=== PATIENT | male | born 1975 | race African-American/Black ===

== ENCOUNTER 2016-08-17 18:56 | Inpatient (IN) | payer MEDICAID ==
[~2016-08-17] VITALS: Ht 172.7 cm; Wt 83.2 kg
[~2016-08-17 18:56] MED LIST: BUPR-40 PO; QUET200T3 PO
[2016-08-17 19:49] LABS: DEFINITIVE VIEW TRANSMISSION; Hematocrit 37.5 % (41.0-53.0); Hemoglobin 12.3 g/dL (13.5-17.5); Mean Corpuscular Hemoglobin 28.2 pg (28.0-32.0); Mean Corpuscular Hgb Conc. 32.8 g/dL (32.0-36.0); Mean Corpuscular Volume 85.9 fL (80.0-100.0); Platelet Count (auto) 383 10^3/uL (140-450); Red Cell Distribution Width 17.6 % (11.6-16.0); SUSPECT VIEW TRANSMISSION
[2016-08-17 20:06] LABS: Albumin 2.9 g/dL (3.4-5.0); BUN/Creatinine Ratio 9.2; Calcium 8.3 mg/dL (8.5-10.1); Potassium 4.7 mmol/L (3.5-5.1)
[2016-08-17 20:08] LABS: Bilirubin, Total 0.2 mg/dL (0.2-1.0); Total Protein 7.9 g/dL (6.4-8.2)
[2016-08-17 20:14] LABS: White Blood Cell 94.8 10^3/uL (4.4-10.8)
[2016-08-17 20:15] LABS: Reactive Lymphocytes 0
[2016-08-17 20:36] LABS: Metamyelocytes % 8; Myelocytes % 4; Platelet Estimate Adequate; Promyelocytes % 1
[2016-08-17 20:41] LABS: Giant Platelets Few
[2016-08-17 20:42] LABS: Polychromasia Slight
[2016-08-18] MEDS ORDERED: LEVOFLOXACIN 500 MG TAB PO ONE (06:00)
[2016-08-18] MEDS ORDERED: cefTRIAXone 1GM/50ML D5W 50 ML IV ONE (06:00)
[2016-08-18] MEDS ORDERED: HYDROcodone-ACET 10/325MG TAB PO ONE (06:45)
[2016-08-18] MEDS ORDERED: HYDROcodone-ACET 10/325MG TAB PO PRN (09:30)
[2016-08-18] MEDS ORDERED: NITROGLYCERIN 0.4 MG SL TAB SL PRN (09:45)
[2016-08-18] MEDS ORDERED: TEMAZEPAM 15 MG CAP PO PRN (09:45)
[2016-08-18] MEDS ORDERED: DOCUSATE SOD 100 MG CAP PO PRN (09:45)
[2016-08-18] MEDS ORDERED: ACETAMINOPHEN 325 MG TAB PO PRN (09:45)
[2016-08-18] MEDS ORDERED: ONDANSETRON HCL 4 MG/2 ML VIAL IV PRN (09:45)
[2016-08-18] MEDS ORDERED: MORPHINE SULF INJ 2 MG/ML SYRINGE 1ML IV PRN ×2 (09:45)
[2016-08-18] MEDS: MULTIPLE VITAMIN TAB PO SCH (10:05)
[2016-08-18] MEDS: FAMOTIDINE 20 MG TAB PO SCH ×2 (10:05→21:34)
[2016-08-18] MEDS: AZITHROMYCIN 500MG/D5W 250ML 250 ML IV SCH (10:05)
[2016-08-18 13:00] VITALS: BP 102/66
[2016-08-18] MEDS: BOOST PLUS 8 ounce PO SCH ×3 (13:04→23:24)
[2016-08-18] MEDS: ALBUTEROL SULF 2.5 MG/0.5ML(0.5%) NEB SOLN NEB SCH ×2 (14:23→22:32)
[2016-08-18] MEDS ORDERED: HYDR-531 PO (14:38)
[2016-08-18] MEDS ORDERED: ALPR2TAB2 PO (14:38)
[2016-08-18] MEDS: SODIUM CHLOR 0.9% PF (SALINE LOCK) 10ML VIAL IV SCH ×2 (16:35→21:35)
[2016-08-18 17:00] VITALS: BP 102/57
[2016-08-18] MEDS: buPROPion HCL 75 MG TAB PO SCH (18:15)
[2016-08-18] MEDS: QUEtiapine FUMARATE 100 MG TAB PO SCH (21:34)
[2016-08-18 22:00] VITALS: BP 110/55
[2016-08-19 05:00] VITALS: BP 118/66
[2016-08-19] MEDS: SODIUM CHLOR 0.9% PF (SALINE LOCK) 10ML VIAL IV SCH ×3 (05:56→21:43)
[2016-08-19] MEDS: BOOST PLUS 8 ounce PO SCH ×4 (06:00→21:44)
[2016-08-19 06:08] LABS: Albumin 2.6 g/dL (3.4-5.0); Calcium 8.5 mg/dL (8.5-10.1); Potassium 4.6 mmol/L (3.5-5.1)
[2016-08-19] MEDS: buPROPion HCL 75 MG TAB PO SCH ×2 (06:09→17:29)
[2016-08-19 06:12] LABS: Bilirubin, Total 0.1 mg/dL (0.2-1.0); Total Protein 7.3 g/dL (6.4-8.2)
[2016-08-19 06:18] LABS: DEFINITIVE VIEW TRANSMISSION; Hematocrit 38.6 % (41.0-53.0); Hemoglobin 12.4 g/dL (13.5-17.5); Mean Corpuscular Hemoglobin 28.1 pg (28.0-32.0); Mean Corpuscular Hgb Conc. 32.2 g/dL (32.0-36.0); Mean Corpuscular Volume 87.2 fL (80.0-100.0); Mean Platelet Volume 8.3 fL (7.4-10.4); Platelet Count (auto) 371 10^3/uL (140-450); Red Cell Distribution Width 17.8 % (11.6-16.0); SUSPECT VIEW TRANSMISSION
[2016-08-19] MEDS: ALBUTEROL SULF 2.5 MG/0.5ML(0.5%) NEB SOLN NEB SCH ×3 (07:15→23:04)
[2016-08-19 07:52] LABS: White Blood Cell 80.7 10^3/uL (4.4-10.8)
[2016-08-19 07:56] LABS: Promyelocytes % 0; Reactive Lymphocytes 0
[2016-08-19 08:00] VITALS: BP 115/67
[2016-08-19] MEDS: cefTRIAXone 1GM/50ML D5W 50 ML IV SCH (08:10)
[2016-08-19] MEDS: AZITHROMYCIN 500MG/D5W 250ML 250 ML IV SCH (08:11)
[2016-08-19] MEDS: MULTIPLE VITAMIN TAB PO SCH (08:11)
[2016-08-19] MEDS: FAMOTIDINE 20 MG TAB PO SCH ×2 (08:11→21:49)
[2016-08-19 09:12] LABS: Metamyelocytes % 6; Myelocytes % 2
[2016-08-19 09:13] LABS: Platelet Estimate Adequate; RBC Morphology Normal
[2016-08-19 11:00] VITALS: BP 131/72
[2016-08-19 11:03] VITALS: BP 115/67
[2016-08-19] MEDS: ALPRAZolam 0.5 MG TAB PO PRN (12:27)
[2016-08-19 16:23] VITALS: BP 117/71
[2016-08-19] MEDS: QUEtiapine FUMARATE 100 MG TAB PO SCH (21:49)
[2016-08-19 22:00] VITALS: BP 117/75
[2016-08-20 05:00] VITALS: BP 109/57
[2016-08-20] MEDS: buPROPion HCL 75 MG TAB PO SCH ×2 (05:57→19:00)
[2016-08-20] MEDS: SODIUM CHLOR 0.9% PF (SALINE LOCK) 10ML VIAL IV SCH ×2 (05:57→14:00)
[2016-08-20 06:23] LABS: Magnesium 2.4 mg/dL (1.6-2.6); Potassium 4.2 mmol/L (3.5-5.1)
[2016-08-20 06:46] LABS: DEFINITIVE VIEW TRANSMISSION; Hematocrit 40.3 % (41.0-53.0); Mean Corpuscular Hemoglobin 28.2 pg (28.0-32.0); Mean Corpuscular Hgb Conc. 32.3 g/dL (32.0-36.0); Mean Corpuscular Volume 87.2 fL (80.0-100.0); Mean Platelet Volume 8.7 fL (7.4-10.4); Platelet Count (auto) 427 10^3/uL (140-450); Red Cell Distribution Width 16.6 % (11.6-16.0); SUSPECT VIEW TRANSMISSION
[2016-08-20 07:33] LABS: White Blood Cell 83.1 10^3/uL (4.4-10.8)
[2016-08-20 07:34] LABS: Reactive Lymphocytes 0
[2016-08-20] MEDS: BOOST PLUS 8 ounce PO SCH ×3 (08:00→18:00)
[2016-08-20] MEDS: MULTIPLE VITAMIN TAB PO SCH (08:49)
[2016-08-20] MEDS: FAMOTIDINE 20 MG TAB PO SCH (08:49)
[2016-08-20] MEDS: ALPRAZolam 0.5 MG TAB PO PRN (08:50)
[2016-08-20] MEDS: cefTRIAXone 1GM/50ML D5W 50 ML IV SCH (08:51)
[2016-08-20 09:00] VITALS: BP 120/77
[2016-08-20] MEDS: ALBUTEROL SULF 2.5 MG/0.5ML(0.5%) NEB SOLN NEB SCH ×2 (09:03→15:18)
[2016-08-20] MEDS ORDERED: ALLOPURINOL 300 MG TAB PO SCH (10:00)
[2016-08-20] MEDS: AZITHROMYCIN 500MG/D5W 250ML 250 ML IV SCH (10:06)
[2016-08-20 12:20] LABS: Metamyelocytes % 8; Myelocytes % 10; Promyelocytes % 1
[2016-08-20 12:21] LABS: Anisocytosis Slight; Platelet Estimate Adequate
[2016-08-20 13:06] VITALS: BP 112/92
[2016-08-20] MEDS ORDERED: HYDROXYUREA 500 MG CAP PO SCH (14:00)
[2016-08-20 15:38] VITALS: BP 112/92
[2016-08-20 16:59] VITALS: BP 136/74
== END 2016-08-20 19:35 | disposition home or self-care (01) | DRG 139 ==
LOC: ER 19:00 → TELE 19:01 → TELE-WESTW 08-18 13:41 → WEST WING 08-20 04:12
PROVIDERS: ADMIT Internal Medicine; ATTEND Internal Medicine
DX: J18.9 Pneumonia, unspecified organism (principal); E43 Unspecified severe protein-calorie malnutrition; C92.10 Chronic myeloid leukemia, BCR/ABL-positive, not having achieved remission; J45.901 Unspecified asthma with (acute) exacerbation; E88.09 Other disorders of plasma-protein metabolism, not elsewhere classified; D63.8 Anemia in other chronic diseases classified elsewhere; E16.2 Hypoglycemia, unspecified; F17.210 Nicotine dependence, cigarettes, uncomplicated; F20.9 Schizophrenia, unspecified; F31.9 Bipolar disorder, unspecified; N18.2 Chronic kidney disease, stage 2 (mild); R19.7 Diarrhea, unspecified; Z59.0 Homelessness; Z91.14 Patient's other noncompliance with medication regimen; Z91.19 Patient's noncompliance with other medical treatment and regimen; Z91.041 Radiographic dye allergy status; Z91.012 Allergy to eggs; Z92.21 Personal history of antineoplastic chemotherapy; Z68.27 Body mass index [BMI] 27.0-27.9, adult
CPT/HCPCS: 36415; 71010; 80048; 80053; 83735; 85007; 85027; 87040; 93005; 94640; 96365; J0696

== ENCOUNTER 2016-09-07 18:31 | Emergency (ER) | payer MEDICAID ==
[~2016-09-07] VITALS: Ht 172.7 cm; Wt 74.8 kg
[~2016-09-07 18:31] MED LIST changes: +ALPR2TAB2 PO; +HYDR-531 PO
[2016-09-08] MEDS ORDERED: cefTRIAXone W LIDOCAINE 1 GM IM IM ONE (03:00)
[2016-09-08] MEDS ORDERED: cefTRIAXone SOD 1,000 MG VL ONE (03:06)
[2016-09-08 04:02] VITALS: BP 118/77
== END 2016-09-08 04:04 | disposition home or self-care (01) ==
LOC: ER 18:34
DX: J06.9 Acute upper respiratory infection, unspecified (principal); F20.9 Schizophrenia, unspecified; F31.9 Bipolar disorder, unspecified; F17.210 Nicotine dependence, cigarettes, uncomplicated
CPT/HCPCS: 96372; 99283; J0696

== ENCOUNTER 2017-04-16 18:53 | Emergency (ER) | payer MEDICAID ==
[~2017-04-16] VITALS: Ht 175.3 cm; Wt 82.6 kg
[2017-04-16 19:02] VITALS: BP 118/76
[2017-04-16] MEDS ORDERED: ACETAMINOPHEN/CODEINE#3 (300/30mg) TAB PO ONE (23:30)
== END 2017-04-16 23:38 | disposition home or self-care (01) ==
LOC: ER 18:57
DX: S82.892A Other fracture of left lower leg, initial encounter for closed fracture (principal); F17.210 Nicotine dependence, cigarettes, uncomplicated; M10.9 Gout, unspecified; Z91.041 Radiographic dye allergy status; Z91.018 Allergy to other foods; W51.XXXA Accidental striking against or bumped into by another person, initial encounter; Y93.89 Activity, other specified; Y99.8 Other external cause status; Y92.89 Other specified places as the place of occurrence of the external cause
CPT/HCPCS: 73600

== ENCOUNTER 2017-06-17 23:18 | Emergency (ER) | payer MEDICAID ==
[~2017-06-17] VITALS: Ht 172.7 cm; Wt 81.6 kg
[2017-06-18 00:56] VITALS: BP 124/75
[2017-06-18] MEDS ORDERED: IBUPROFEN 600 MG TAB PO ONE ×2 (01:15)
== END 2017-06-18 01:34 | disposition home or self-care (01) ==
LOC: ER 23:18
DX: S93.402A Sprain of unspecified ligament of left ankle, initial encounter (principal); M10.9 Gout, unspecified; F17.210 Nicotine dependence, cigarettes, uncomplicated; Z91.012 Allergy to eggs; Z91.041 Radiographic dye allergy status; X50.0XXA Overexertion from strenuous movement or load, initial encounter; Y93.89 Activity, other specified; Y99.8 Other external cause status; Y92.89 Other specified places as the place of occurrence of the external cause
CPT/HCPCS: 29515; 73610